=== PATIENT | male | born 1990 | race Caucasian/White ===

== ENCOUNTER 2023-08-10 09:17 | Day surgery (SDC) | payer BC ==
[2023-08-08 14:09] VITALS: BMI 30.4
[~2023-08-10 09:17] MED LIST: LACTATED RINGERS 1,000 ML IV SCH
[2023-08-10 10:05] VITALS: RESP 16; TEMP 97.5
[2023-08-10] MEDS ORDERED: LIDOCAINE 1% INJ 10MG/ML (20 ML MDV) ONE (11:32)
[2023-08-10] MEDS ORDERED: fentaNYL (PF) 50 MCG/ML 2 ML AMP ONE (11:32)
[2023-08-10] MEDS ORDERED: PROPOFOL 10 MG/ML 20 ML VIAL IV ONE (11:32)
--- NOTE | 2023-08-10 11:44 | P.PCN ---
Date of Procedure: 08/10/23 Procedure(s) Performed: BRIEF HISTORY: Patient is a 32-year-old, pleasant, male scheduled for an upper endoscopy as a part of evaluation of intermittent dysphagia solids for the last 3 months duration.. He is presently on omeprazole 20 mg twice daily as well as Pepcid at bedtime with some help of the symptoms PROCEDURE PERFORMED: Esophagogastroduodenoscopy with biopsy. PREOPERATIVE DIAGNOSIS: GERD and intermittent dysphagia to solids.. IV sedation per anesthesia. PROCEDURE: After informed consent was obtained, the patient was brought into the endoscopy unit. IV sedation was administered by Anesthesia under continuous monitoring. Initially the Olympus GIF-140 video endoscope was inserted into the mouth. Esophagus intubated without any difficulty. It was gradually advanced into the stomach and duodenum and carefully examined. The bulb and the second part of the duodenum appeared normal. 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 Cause of the body, cardia and the fundus appeared normal. The scope was then withdrawn into the esophagus. The GE junction was located at 41 cm from the incisors. Small hiatal hernia noted. The mucosal folds in the mid and distal esophagus appeared slightly thickened and biopsies were done to evaluate for eosinophilic esophagitis. No esophageal strictures seen. There were no erosions or ulcerations seen and the patient tolerated the procedure well. IMPRESSION: 1. 7-8 mm gastric antral polyp status post biopsy. 2. Slightly thickened esophageal folds involving the mid and distal esophagus but no esophageal stricture status post multiple biopsies to evaluate for eosinophilic esophagitis. RECOMMENDATIONS: The findings of this examination were discussed with the patient as well as his family. He was advised to follow with the biopsy results. Continue with omeprazole 20 mg twice daily and follow antireflux measures. He'll be seen in office in 3-4 weeks..
[2023-08-10] MEDS ORDERED: IV FLUID CONTINUATION 1,000 ML IV ONE (11:46)
[2023-08-10 12:12] VITALS: BP 107/64; PULSE 61
== END 2023-08-10 12:40 | disposition home or self-care (01) ==
LOC: ORWHC2ENDO 09:17
PROVIDERS: ATTEND Internal Medicine Gastroenterology
DX: K29.50 Unspecified chronic gastritis without bleeding (principal); K31.7 Polyp of stomach and duodenum; K21.9 Gastro-esophageal reflux disease without esophagitis; Z79.899 Other long term (current) drug therapy; Z98.890 Other specified postprocedural states
CPT/HCPCS: 88305; 43239; J2001; J3010; J2704